=== PATIENT | female | born 1960 | race Caucasian/White ===

== ENCOUNTER 2024-08-25 15:50 | Emergency (ER) | payer MEDICARE, BC ==
[~2024-08-25] VITALS: Ht 162.6 cm; Wt 68.0 kg
[2024-08-25] MEDS: METOPROLOL TARTRATE 5 MG/5 ML VIAL IVP ONE (16:00)
[2024-08-25] MEDS ORDERED: METO-357 PO (16:07)
[2024-08-25] MEDS ORDERED: FAMO40TA7 PO (16:07)
[2024-08-25] MEDS ORDERED: ESCI-9 MT (16:07)
[2024-08-25] MEDS ORDERED: DIVA-76 PO (16:07)
[2024-08-25] MEDS ORDERED: RIME75TA PO (16:07)
[2024-08-25] MEDS ORDERED: AMLO2.5T4 PO (16:07)
[2024-08-25] MEDS ORDERED: CELE100C98 PO (16:07)
[2024-08-25] MEDS ORDERED: LORA0.5T48 PO (16:07)
[2024-08-25] MEDS ORDERED: LORAZEPAM 0.5 MG TABLET ONE (16:19)
[2024-08-25] MEDS ORDERED: LORAZEPAM 2 MG/1 ML VIAL ONE (16:22)
[2024-08-25 16:29] LABS: CALCIUM 8.9 mg/dL (8.5-10.1); CARBON DIOXIDE 26 mmol/L (21-32); CHLORIDE 102 mmol/L (98-107); CREATININE 0.8 mg/dL (0.6-1.3); GLUCOSE 94 mg/dL (74-106); POTASSIUM 4.4 mmol/L (3.5-5.1); SODIUM SERUM 139 mmol/L (136-145); UREA NITROGEN, BLOOD 20 mg/dL (7-18)
[2024-08-25 16:30] LABS: BASOPHILS % (AUTO) 0.6 % (0.0-2.0); EOSINOPHILS # (AUTO) 0.1 K/uL (0.0-0.7); EOSINOPHILS % (AUTO) 1.2 % (0.0-7.0); HEMATOCRIT 38.5 % (31.2-41.9); LYMPHOCYTES # (AUTO) 1.3 K/uL (0.8-4.8); MEAN CORPUSCULAR HEMOGLOBIN 32.9 uug (24.7-32.8); MEAN CORPUSCULAR HGB CONC 34 g/dL (32.3-35.6); MONOCYTES # (AUTO) 0.5 K/uL (0.1-1.30); MONOCYTES % (AUTO) 10.3 % (0.0-11.0); NEUTROPHILS # (AUTO) 3.2 K/uL (1.8-8.9); NEUTROPHILS % (AUTO) 61.9 % (38.5-71.5); PLATELET COUNT (AUTO) 151 K/uL (179-408); RED BLOOD CELL COUNT(AUTO) 3.96 MIL/uL (3.63-4.92); RED CELL DISTRIBUTION WIDTH 14.1 % (12.3-17.7); WHITE BLOOD COUNT (AUTO) 5.1 K/uL (3.8-11.8)
[2024-08-25 16:42] LABS: ALANINE AMINOTRANSFERASE 24 U/L (14-59); ALBUMIN 3.5 g/dL (3.4-5.0); ALKALINE PHOSPHATASE 48 U/L (50-136); ASPARTATE AMINOTRANSFERASE 18 U/L (15-37); BILIRUBIN,DIRECT 0.1 mg/dL (0.0-0.2); BILIRUBIN,TOTAL 0.3 mg/dL (0.2-1.0); NT-PRO BNP 224 pg/mL (0-125); TOTAL PROTEIN, SERUM 6.8 g/dL (6.4-8.2)
[2024-08-25] MEDS ORDERED: METOPROLOL TARTRATE 50 MG TABLET ONE (16:44)
[2024-08-25] MEDS ORDERED: METOPROLOL TARTRATE 5 MG/5 ML VIAL IVP ONE (16:44)
[2024-08-25] MEDS ORDERED: MAGNESIUM SULFATE/D5W 200 ML ONE (16:45)
[2024-08-25] MEDS: MAGNESIUM SULFATE 2 GM in IV DEXTROSE 5% 100 ML IV ONE (17:02)
[2024-08-25] MEDS: IV NORMAL SALINE 500 ML IV ONE (17:03)
[2024-08-25] MEDS: LORAZEPAM 0.5 MG TABLET PO ONE (17:04)
[2024-08-25 17:09] LABS: *BILIRUBIN,URIN NEGATIVE (NEGATIVE); *BLOOD, URINE NEGATIVE (NEGATIVE); *CLARITY,URINE CLEAR (CLEAR); *KETONES,URINE NEGATIVE (NEGATIVE); *PROTEIN,URINE NEGATIVE (NEGATIVE); *UROBILINOGEN,URINE 0.2 E.U./dl (NORMAL); LEUKOCYTE ESTERASE ,URINE NEGATIVE (NEGATIVE); NITRITE, URINE NEGATIVE (NEGATIVE); UGLUCOSE NEGATIVE (NEGATIVE)
[2024-08-25] MEDS: LORAZEPAM 2 MG/1 ML VIAL IV ONE (17:15)
[2024-08-25 17:16] LABS: *COLOR,URINE LIGHT YELLOW (YELLOW)
[2024-08-25] MEDS: METOPROLOL TARTRATE 50 MG TABLET PO ONE (18:23)
[2024-08-25] MEDS ORDERED: CYANOCOBALAMIN 1000 MCG/ML VIAL ONE (18:26)
[2024-08-25] MEDS: CYANOCOBALAMIN 1000 MCG/ML VIAL IM ONE (18:32)
[2024-08-25] MEDS ORDERED: DICYCLOMINE HCL LIQ 10 MG/5 ML UDC ONE (19:22)
[2024-08-25] MEDS ORDERED: LIDOCAINE VISCUS 2% 15 ML UDC ONE (19:22)
[2024-08-25] MEDS ORDERED: DEXAMETHASONE SOD PHOSPHATE 4 MG INJ ONE (19:22)
[2024-08-25] MEDS ORDERED: MAG HYDROX/AL HYDROX/SIMETH 30 ML LIQUID UDC ONE (19:23)
[2024-08-25] MEDS ORDERED: FAMOTIDINE. 20 MG/2 ML VIAL IV ONE ×2 (19:24→19:36)
[2024-08-25] MEDS: LIDOCAINE VISCUS 2% 15 ML UDC MM ONE (19:48)
[2024-08-25] MEDS: DICYCLOMINE HCL LIQ 10 MG/5 ML UDC PO ONE (19:48)
[2024-08-25] MEDS: FAMOTIDINE. 20 MG/2 ML VIAL IV ONE (19:48)
[2024-08-25] MEDS: MAG HYDROX/AL HYDROX/SIMETH 30 ML LIQUID UDC PO ONE (19:48)
[2024-08-25] MEDS: DEXAMETHASONE SOD PHOSPHATE 4 MG INJ IV ONE (19:48)
[2024-08-25 20:06] VITALS: BP 123/68; O2SAT 97
== END 2024-08-25 20:07 | disposition home or self-care (01) ==
LOC: ER 15:50
DX: R07.2 Precordial pain (principal); R42 Dizziness and giddiness; R53.83 Other fatigue; E53.8 Deficiency of other specified B group vitamins; E78.5 Hyperlipidemia, unspecified; F41.9 Anxiety disorder, unspecified; K21.9 Gastro-esophageal reflux disease without esophagitis; G43.909 Migraine, unspecified, not intractable, without status migrainosus; Z79.899 Other long term (current) drug therapy; R11.0 Nausea
CPT/HCPCS: 99285; 96365; 96375; 71045; 96366; 80076; 80048; 81003; 82607; 83880; 85025; 85379; 84484 ×2; 36415; 93005; 96372; J3420; J1100; J1308 ×2; J2060; J3475 ×2; J7040; A4606; A4663; J3490